=== PATIENT | female | born 1990 | race Asian ===

== ENCOUNTER 2020-05-06 07:19 | Emergency (ER) | payer SELFPAY ==
[~2020-05-06] VITALS: Ht 165.1 cm; Wt 55.0 kg
[2020-05-06] MEDS ORDERED: ACETAMINOPHEN 500 MG TABLET PO ONE (08:00)
[2020-05-06] MEDS ORDERED: ACETAMINOPHEN 500 MG TABLET ONE (08:08)
[2020-05-06 08:13] LABS: BASOPHILS # (AUTO) 0.02 x10^3/uL (0-0.1); BASOPHILS % (AUTO) 0 % (0-1); EOSINOPHILS # (AUTO) 0.14 x10^3/uL (0-0.4); EOSINOPHILS % (AUTO) 2 % (1-7); LYMPHOCYTES # (AUTO) 1.27 x10^3/uL (1-3.4); LYMPHOCYTES % (AUTO) 16 % (22-44); MD NO; MEAN CORPUSCULAR HEMOGLOBIN 20.5 pg (27.0-34.8); MEAN CORPUSCULAR HGB CONC 30.8 g/dL (32.4-35.8); MEAN CORPUSCULAR VOLUME 66.6 fL (80-100); MEAN PLATELET VOLUME 8.2 fL (7.4-10.4); MONOCYTES # (AUTO) 0.37 x10^3/uL (0.2-0.8); MONOCYTES % (AUTO) 5 % (2-9); NEUTROPHILS # (AUTO) 6.38 x10^3/uL (1.8-6.8); NEUTROPHILS % (AUTO) 78 % (42-75); PLATELET COUNT 295 x10^3/uL (130-400); RED BLOOD COUNT 4.84 x10^6/uL (3.82-5.3); RED CELL DISTRIBUTION WIDTH 19.5 % (9.6-15.2)
--- NOTE | 2020-05-06 08:20 | NUR ---
URINE COLLECTED AND SENT TO LAB.
--- NOTE | 2020-05-06 08:21 | NUR ---
PT MEDICATED PER NOV. ULTRASOUND AT BEDSIDE.
[2020-05-06 08:24] LABS: ALBUMIN 3.2 g/dL (3.4-5.0); ANION GAP 5 mmol/L (5-15); CALCIUM 8.4 mg/dL (8.5-10.1); CHLORIDE 110 mmol/L (98-107); CREATININE 0.42 mg/dL (0.55-1.02)
[2020-05-06 08:27] LABS: MICROSCOPIC AUTO
[2020-05-06 11:22] VITALS: BP 107/68
--- NOTE | 2020-05-06 12:09 | NUR ---
PT GIVEN DC INSTRUCTIONS AND PAPERWORK, PT ASKING TO WAIT IN ROOM UNTIL [facility]IDE HOME GETS HERE, PERSONNEL REPRESENTATIVE NOTIFED AND OK PER CHARGE.
== END 2020-05-06 12:42 | disposition home or self-care (01) ==
LOC: ED 11:00
DX: O9A.212 Injury, poisoning and certain other consequences of external causes complicating pregnancy, second trimester (principal); S39.012A Strain of muscle, fascia and tendon of lower back, initial encounter; Z3A.00 Weeks of gestation of pregnancy not specified; X58.XXXA Exposure to other specified factors, initial encounter; Y93.89 Activity, other specified; Y92.89 Other specified places as the place of occurrence of the external cause; Y99.8 Other external cause status
CPT/HCPCS: 36415; 76770; 76815; 80048; 81001; 82040; 84702; 85025; 87086; 99285